=== PATIENT | male | born 1960 | race Hispanic/Latino ===

== ENCOUNTER → 2018-04-23 | Day surgery (SDC) | payer BC ==
[~2018-04-23] MED LIST: ASPIR 8181 MG PO; ATORVASTATIN CA40 MG PO; FENTANYL CITRATE/PF 100MCG/2 ML INJ ONE; METFORMIN HCL500 MG PO; MIDAZOLAM HCL 2 MG/2 ML VIAL ONE; PROPOFOL IV EMULSION 10 MG/ML 20 ML VIAL ONE
[2018-04-23 08:25] VITALS: BP 122/86
== END | disposition home or self-care (01) ==
LOC: OR 06:20
PROVIDERS: ATTEND Internal Medicine Gastroenterology
DX: I10 Essential (primary) hypertension (principal); K63.5 Polyp of colon; K57.30 Diverticulosis of large intestine without perforation or abscess without bleeding; K64.8 Other hemorrhoids; Z71.3 Dietary counseling and surveillance; E78.00 Pure hypercholesterolemia, unspecified; Z12.11 Encounter for screening for malignant neoplasm of colon; Z79.82 Long term (current) use of aspirin; Z68.31 Body mass index [BMI] 31.0-31.9, adult
CPT/HCPCS: 36415; 45385; 82948; J2250; J2704; 45378

== ENCOUNTER → 2023-11-14 | Day surgery (SDC) | payer BC ==
[2023-11-13 11:35] LABS: BASOPHILS % 0.5 % (0.0-1.0); EOSINOPHILS # (AUTO) 0.3 (0.0-0.4); EOSINOPHILS % 5.2 % (0.0-6.0); HEMATOCRIT 39.1 % (38.2-49.6); HEMOGLOBIN 12.7 g/dL (14.0-18.0); LYMPHOCYTES # (AUTO) 1.9 (1.0-3.2); MEAN CORPUSCULAR HGB CONC 32.5 g/dL (31-35); MEAN CORPUSCULAR VOLUME 86.1 fL (81-99); MONOCYTES # (AUTO) 0.5 (0.2-0.8); MONOCYTES % 8.4 % (4.4-11.3); NEUTROPHILS # (AUTO) 3.4 (2.1-6.9); NEUTROPHILS % 55.6 % (38.7-80.0); PLATELET COUNT 254 x10e3/uL (140-360); RED BLOOD COUNT 4.54 x10e6/uL (4.3-5.7); WHITE BLOOD COUNT 6.19 x10e3/uL (4.8-10.8)
[~2023-11-14] MED LIST changes: -FENTANYL CITRATE/PF 100MCG/2 ML INJ ONE; +HYGROTON25 MG PO; +LEVOTHYROXINE50 MCG PO; +LIDOCAINE HCL 2% LOCAL INJ 5 ML SDV VIAL INJ ONE; +LOSARTAN POTASS25 MG PO
[2023-11-14] MEDS: LACTATED RINGER'S 1,000 ML ONE (10:21)
[2023-11-14 11:52] VITALS: TEMP 97
[2023-11-14 12:20] VITALS: BP 123/71; PULSE 63; RESP 16; O2SAT 99
== END | disposition home or self-care (01) ==
LOC: OR 10:04
PROVIDERS: ATTEND Internal Medicine Gastroenterology
DX: Z12.11 Encounter for screening for malignant neoplasm of colon (principal); D12.3 Benign neoplasm of transverse colon; D12.5 Benign neoplasm of sigmoid colon; D12.8 Benign neoplasm of rectum; K57.30 Diverticulosis of large intestine without perforation or abscess without bleeding; K64.8 Other hemorrhoids; R74.8 Abnormal levels of other serum enzymes; R76.8 Other specified abnormal immunological findings in serum; K82.4 Cholesterolosis of gallbladder; R79.89 Other specified abnormal findings of blood chemistry; D64.9 Anemia, unspecified; I10 Essential (primary) hypertension; E78.5 Hyperlipidemia, unspecified; E11.9 Type 2 diabetes mellitus without complications; E03.9 Hypothyroidism, unspecified; Z01.810 Encounter for preprocedural cardiovascular examination; Z01.812 Encounter for preprocedural laboratory examination; Z79.84 Long term (current) use of oral hypoglycemic drugs; Z79.899 Other long term (current) drug therapy; Z68.32 Body mass index [BMI] 32.0-32.9, adult; Z80.0 Family history of malignant neoplasm of digestive organs
CPT/HCPCS: 36415 ×2; 45384; 45385; 82948; 85025; 93005; J2001; J2250; J2704; J7121